=== PATIENT | male | born 1945 | race Caucasian/White ===

== ENCOUNTER 2017-01-14 06:14 | Day surgery (SDC) | payer OTHER ==
[~2017-01-14] VITALS: Ht 181.6 cm; Wt 58.2 kg
[~2017-01-14 06:14] MED LIST: ASPI81 PO; FERR324T4 PO; PRIL10CA PO; PRIN10TA PO; ZOCO40TA PO
[2017-01-14] MEDS ORDERED: ASPI81CH CHEW (06:43)
[2017-01-14] MEDS ORDERED: ONDA1TAB16 PO (06:43)
[2017-01-14] MEDS ORDERED: OMEP20TA PO (06:43)
[2017-01-14] MEDS ORDERED: LISI-519 PO (06:43)
[2017-01-14] MEDS ORDERED: BENZ1CAP8 PO (06:43)
[2017-01-14] MEDS ORDERED: HYDR200T3 PO (06:43)
[2017-01-14] MEDS ORDERED: SIMV40TA PO (06:43)
[2017-01-14 06:44] VITALS: BP 72/53; PULSE 118; RESP 20; TEMP 99.6; O2SAT 93
[2017-01-14] MEDS ORDERED: LEVOFLOXACIN 500 MG PREMIX 100 ML - biliary drainage catheter/stent insertion IV SCH (07:00)
[2017-01-14] MEDS ORDERED: SODIUM CHLORIDE 0.9% 1000 ML IV SCH (07:00)
[2017-01-14 07:13] LABS: BASOPHIL % 0.3 % (0.0-2.0); EOSINOPHIL % 0.4 % (0.0-4.0); HEMATOCRIT 38.4 % (39.0-51.0); HEMO FLAGS DIFF FINAL; LYMPH % 4.7 % (9.0-44.0); LYMPHOCYTE # 0.5 TH/MM3 (1.0-4.8); MEAN CELL VOLUME 88.4 FL (80.0-100.0); MEAN CORPUSCULAR HEMOGLOBIN 29.1 PG (27.0-34.0); MEAN CORPUSCULAR HGB CONC 32.9 % (32.0-36.0); MONO % 5.4 % (0.0-8.0); NEUT % 89.2 % (16.0-70.0); PLATELET COUNT 250 TH/MM3 (150-450); RED BLOOD COUNT 4.34 MIL/MM3 (4.50-5.90); RED CELL DISTRIBUTION WIDTH 13.8 % (11.6-17.2); WHITE BLOOD COUNT 11.2 TH/MM3 (4.0-11.0)
[2017-01-14 07:25] LABS: APTT (PATIENT) 28.8 SEC (24.3-30.1); PROTHROMBIN TIME - PATIENT 11.3 SEC (9.8-11.6)
[2017-01-14] MEDS ORDERED: MIDAZOLAM HCL 2 MG/2 ML VIAL ONE (07:59)
[2017-01-14] MEDS ORDERED: VANCOMYCIN HCL 1000 MG VIAL ONE (08:33)
[2017-01-14 09:05] VITALS: BP 77/53; PULSE 88; RESP 16; RESP 18; TEMP 98.8; O2SAT 92
[2017-01-14 09:20] VITALS: BP 81/53; PULSE 92; RESP 16; O2SAT 93
[2017-01-14 09:50] VITALS: BP 81/53; PULSE 90; RESP 16; O2SAT 94
[2017-01-14] MEDS ORDERED: SODIUM CHLORIDE 0.9% FLUSH 10 ML FLUSH IVF PRN (10:00)
--- NOTE | 2017-01-14 10:00 | PD.RAD ---
Post Procedure Progress Note Pre Procedure Diagnosis: (1) Prostate CA Post Procedure Diagnosis: (1) Prostate CA Procedure Date: Jan 14, 2017 Supervising Radiologist: Micah Henriquez Proceduralist/Assist: RT Twyla(R) Estimated blood loss: none Anesthesia: Local, Conscious Sedation Plan of Activity Patient to Unit: ROPU Patient Condition: Good See PACS Report for procedural detail/treatment Central Venous Access Device Procedure 1 Right Internal Jugular Infusaport Placement single lumen Israeli: 8 Micah Henriquez MD Jan 14, 2017 10:00
[2017-01-14 10:20] VITALS: BP 80/50; PULSE 88; RESP 16; O2SAT 94
--- NOTE | 2017-01-20 09:34 | RADRPT ---
EXAM DATE/TIME: 01/14/2017 07:45 [facility] COMPARISON: No previous studies available for comparison. INDICATIONS : Patient needs port for chemo. MEDICAL HISTORY : 1. Hx of prostate cancer 2. hiatal hernia 3. CAD SURGICAL HISTORY : 1. CABG x3 2. stent 3. bilateral cataracts 4. Cryo of prostate ENCOUNTER: Initial ACUITY: 1 week PAIN SCORE: 0/10 FLUORO TIME: 2.0 minutes IMAGE SERIES: 1 SEDATION TIME: 20 minutes ACCESS: Right internal jugular vein SEDATION: 1.) 2 mg midazolam (Versed) IV 2.) 100 mcg fentanyl (Sublimaze) IV Prophylactic antibiotics were administered with appropriate pre-procedure timing. Vancomycin within 2 hours of procedure, Ancef (or alternative) within 1 hour of procedure. DEVICE: 1. 8 [place] single lumen Smart port PROCEDURE : 1. Continuous pulse oximetry and EKG monitoring. 2. Intravenous conscious sedation. 3. Ultrasound guidance for venous access. 4. Fluoroscopic guided implantable central venous port placement. The patient was placed supine. The neck was prepped in sterile fashion. Full sterile technique was u sed, including cap, mask, sterile gloves and gown, and a large sterile sheet. Hand hygiene and 2% ch lorhexidine Betadine was utilized per protocol for cutaneous antisepsis with appropriate dry time for site. Sterile gel and sterile probe cover were utilized for ultrasound guidance. The skin and sub cutaneous tissues were infiltrated with local anesthetic solution. Under direct ultrasound guidance, central venous access was accomplished in the targeted vessel. The ultrasound images depicting access guidance were stored and saved to PACS for permanent record. A s ubcutaneous pocket was created using blunt dissection. The port was introduced to the pocket. The c atheter tubing was fed through a subcutaneous tunnel to the venotomy site. The catheter tubing was c ut to a suitable length and then was introduced through a valved Peel-Away sheath and positioned with catheter tubing tip at the cavo-atrial junction level. The pocket incision was closed with subcutic ular Vicryl suture. Steri-Strips were applied. The port was flushed and locked with heparin solutio n per protocol. Sterile dressing was applied to the site. The patient tolerated the procedure well. Conscious sedation was performed with the prescribed dosages and duration as above in the presence of an independent trained radiology nurse to assist in the monitoring of the patient. EKG and oximetry remained stable throughout the procedure. The patient tolerated the procedure well and there were no complications. The patient was sent to post anesthesia recovery in stable condition. CONCLUSION: Uncomplicated ultrasound and fluoroscopic guided implanted central venous port catheter placement as described in detail above. An 8 [place] Power port was placed. Micah Henriquez MD on January 20, 2017 at 9:33 Board Certified Radiologist. This report was verified electronically.
== END 2017-01-14 10:55 | disposition home or self-care (01) ==
LOC: HROP 06:14 → HRIP 06:36 → HROP 10:55
PROVIDERS: ATTEND Internal Medicine Hematology & Oncology
DX: C61 Malignant neoplasm of prostate (principal); I25.10 Atherosclerotic heart disease of native coronary artery without angina pectoris; Z95.1 Presence of aortocoronary bypass graft; Z95.5 Presence of coronary angioplasty implant and graft
CPT/HCPCS: 36561; 76937; 77001; 85025; 85610; 85730; 99152; 99153; C1788; J1642; J1956; J2250; J3010; J3370; J7030

== ENCOUNTER 2017-01-20 07:47 | Day surgery (SDC) | payer OTHER ==
[2017-01-20] VITALS (8 sets, daily range): BP systolic 126–148; BP diastolic 64–87; PULSE 65–107; RESP 16–20; TEMP 97.8–97.9; O2SAT 92–94
[~2017-01-20 07:47] MED LIST changes: -ASPI81 PO; +ASPI81CH CHEW; +BENZ1CAP8 PO; -FERR324T4 PO; +HYDR200T3 PO; +LISI-519 PO; +OMEP20TA PO; +ONDA1TAB16 PO; -PRIL10CA PO; -PRIN10TA PO; +SIMV40TA PO; -ZOCO40TA PO
[2017-01-20] MEDS ORDERED: SODIUM CHLOR 0.9% 1000 ML IV SCH (08:30)
[2017-01-20] MEDS ORDERED: RESP: ALBUTEROL 2.5 MG/3 ML NEB (SCH) ONE (08:41)
[2017-01-20] MEDS ORDERED: RESP: ALBUTEROL 2.5 MG/3 ML NEB (SCH) INH ONE (09:15)
[2017-01-20] MEDS ORDERED: MIDAZOLAM HCL 2 MG/2 ML VIAL ONE (09:17)
[2017-01-20] MEDS ORDERED: oxyCODONE/ACETAMINOPHEN 5 MG/325 MG TAB PO PRN (09:45)
--- NOTE | 2017-01-20 09:46 | PD.RAD ---
Post CT Procedure Prog Note Pre Procedure Diagnosis: (1) Prostate CA Post Procedure Diagnosis: (1) Prostate CA Procedure Date: Jan 20, 2017 Supervising Radiologist: Kurtis Cortez Anesthesia: Conscious Sedation Plan of Activity Patient to Unit: ROPU Patient Condition: Good See PACS Report for procedural detail/treatment Biopsy Imaging Guidance: CT Side: Right Biopsy Procedure: Lung Specimen: Core Biopsy (small pnx post biopsy) Kurtis Cortez MD Jan 20, 2017 09:46
--- NOTE | 2017-01-20 10:00 | RADRPT ---
EXAM DATE/TIME: 01/20/2017 09:21 [facility] COMPARISON: No previous studies available for comparison. INDICATIONS : Right lung mass. SEDATION TIME: 20 minutes BIOPSY SITE: Right lung MEDICATION(S): 1.) 1.5 mg midazolam (Versed) IV 2.) 75 mcg fentanyl (Sublimaze) IV DEVICE(S): 1.) 20 gauge Temno core biopsy needle MEDICAL HISTORY : Carcinoma, prostate. Cardiovascular disease. Hypertension. SURGICAL HISTORY : CABG ENCOUNTER: Initial ACUITY: 1 day PAIN SCORE: 0/10 LOCATION: Right chest A total of one core specimen(s) were obtained and sent to the laboratory for pathologic evaluation. PROCEDURE: 1. CT guided lung right biopsy. 2. Conscious sedation with continuous EKG and oximetry monitoring. 3. EKG and oximetry remained stable throughout the procedure. Prior to the procedure informed consent was obtained. Any appropriate prior imaging studies were rev iewed. Using automated exposure control and adjustment of the mA and/or kV according to patient size, radiation dose was kept as low as reasonably achievable to obtain optimal diagnostic quality images. DICOM format image data is available electronically for review and comparison. The site was prepped in a sterile fashion. Full sterile technique was used, including cap, mask, tammy rile gloves and gown and a large sterile sheet. Hand hygiene and 2% chlorhexidine and/or betadine/al cohol prep was utilized per protocol for cutaneous antisepsis. The skin and subcutaneous tissues wer e infiltrated with local anesthetic solution. With CT guidance the previously identified target was localized. Biopsy was performed using the presc ribed needle as above. Adequate hemostasis was obtained with compression at the puncture site. Follow-up CT scan reveals no pneumothorax. Conscious sedation was performed with the prescribed dosages and duration as above in the presence of an independent trained radiology nurse to assist in the monitoring of the patient. EKG and oximetry remained stable throughout the procedure. The patient tolerated the procedure well with a small pneu mothorax. The patient was sent to Radiology Outpatient Unit in stable condition. CONCLUSION: Small pneumothorax following biopsy. Chest radiographically performed Kurtis Cortez MD on January 20, 2017 at 9:58 Board Certified Radiologist. This report was verified electronically.
--- NOTE | 2017-01-20 10:13 | RADRPT ---
EXAM DATE/TIME: 01/20/2017 09:53 [facility] COMPARISON: CT NEEDLE BIOPSY LUNG, RIGHT, January 20, 2017, 9:21. INDICATIONS : Lung mass post biopsy MEDICAL HISTORY : Hypertension. Rheumatoid arthritis. Carcinoma, lung. Prostate cancer. COPD. Myocardial infarction . Thyroid cancer. Cardiovascular disease. Metastatic cancer. SURGICAL HISTORY : CABG. Cardiac stent. ENCOUNTER: Initial ACUITY: 1 day PAIN SCORE: 0/10 LOCATION: Right chest FINDINGS: There is no evidence of pneumothorax. Vascular congestion appears related to expiratory technique. As ymmetric hazy density over flex effusion. Cardiac contour is grossly stable. CONCLUSION: No pneumothorax Micah Henriquez MD on January 20, 2017 at 10:08 Board Certified Radiologist. This report was verified electronically.
[2017-01-20] MEDS ORDERED: SODIUM CHLORIDE 0.9% FLUSH 10 ML FLUSH IV FLUSH PRN (11:15)
--- NOTE | 2017-01-20 12:13 | RADRPT ---
EXAM DATE/TIME: 01/20/2017 11:40 [facility] COMPARISON: CHEST EXPIRATION ONLY, January 20, 2017, 9:53. INDICATIONS : Evaluate for pneumothorax post lung biopsy MEDICAL HISTORY : Hypertension. Rheumatoid arthritis. Carcinoma, lung. Prostate cancer, [place], prostate ca, COPD, thyroid ca SURGICAL HISTORY : CABG. coronary artery stent ENCOUNTER: Subsequent ACUITY: 1 day PAIN SCORE: 0/10 LOCATION: Right chest FINDINGS: Patient is status post right lung biopsy. No pneumothorax identified radiographically. There is a rig ht pleural effusion and mild right basilar airspace disease. [id number] in superior vena cava. Pre vious CABG. CONCLUSION: 1. No pneumothorax identified post procedure. Small right pleural effusion. Devaughn Farias MD on January 20, 2017 at 12:10 Board Certified Radiologist. This report was verified electronically.
== END 2017-01-20 14:00 | disposition home or self-care (01) ==
LOC: HROP 07:47 → HRIP 07:48 → HROP 14:00
PROVIDERS: ATTEND Internal Medicine Hematology & Oncology
DX: C34.91 Malignant neoplasm of unspecified part of right bronchus or lung (principal); J90 Pleural effusion, not elsewhere classified; C61 Malignant neoplasm of prostate; I10 Essential (primary) hypertension; J44.9 Chronic obstructive pulmonary disease, unspecified; I25.2 Old myocardial infarction; M06.9 Rheumatoid arthritis, unspecified; Z95.1 Presence of aortocoronary bypass graft; Z95.5 Presence of coronary angioplasty implant and graft; Z85.850 Personal history of malignant neoplasm of thyroid; Z85.46 Personal history of malignant neoplasm of prostate
CPT/HCPCS: 32405; 71010; 77012; 88305; 88341; 88342; J2250; J3010; J7030; J7613